=== PATIENT | female | born 1945 | race Caucasian/White ===

== ENCOUNTER → 2016-08-06 11:13 | Outpatient (CLI) | payer MEDICARE, OTHER ==
[2015-08-15 08:41] VITALS: BMI 21.5
[~2016-08-06 11:13] MED LIST: AMBIEN5 MG PO; BABY ASPIRIN81 MG PO; CALCIUM 600+D T1 TA1 PO; FIBERCON625 MG PO; LIPITOR10 MG PO; LIPITOR20 MG PO; LISINOPRIL5 MG PO; MULTI-DAY VITAM1 TAB PO; TOPROL XL25 MG PO; VITAMIN D2000 UNIT PO
== END | disposition home or self-care (01) ==
LOC: D.US 11:00
DX: N89.8 Other specified noninflammatory disorders of vagina (principal)

== ENCOUNTER 2016-09-03 09:05 | Outpatient (CLI) | payer MEDICARE, OTHER ==
[~2016-09-03] VITALS: Ht 152.4 cm; Wt 52.3 kg
[2016-09-03 10:37] VITALS: BP 124/68; Ht 152.4 cm; Wt 52.3 kg
--- NOTE | 2016-09-03 10:45 | NUR ---
1022- INFUSION STARTED TO LEFT FA IV LOT#: [id number] EXP:09/2017
== END 2016-09-03 11:00 | disposition home or self-care (01) ==
LOC: D.OPS 09:05
DX: M81.0 Age-related osteoporosis without current pathological fracture (principal)

== ENCOUNTER → 2016-09-04 15:55 | Outpatient (CLI) | payer MEDICARE, OTHER ==
[2016-09-03 10:37] VITALS: BMI 22.5
== END | disposition home or self-care (01) ==
LOC: D.MAMMO 09:30
DX: Z12.31 Encounter for screening mammogram for malignant neoplasm of breast (principal)

== ENCOUNTER → 2018-06-09 17:00 | Outpatient (CLI) | payer MEDICARE, OTHER ==
[2016-09-03 10:37] VITALS: BMI 22.5
== END | disposition home or self-care (01) ==
LOC: D.MAMMO 05-05 09:45
DX: Z12.31 Encounter for screening mammogram for malignant neoplasm of breast (principal)

== ENCOUNTER 2019-12-28 11:33 | Outpatient (CLI) | payer MEDICARE, OTHER ==
[~2019-12-28] VITALS: Ht 152.4 cm; Wt 44.5 kg
[2019-12-28 12:21] VITALS: BP 168/93; Ht 152.4 cm; Wt 44.5 kg
== END 2019-12-28 12:19 | disposition home or self-care (01) ==
LOC: D.OPS 11:33
PROVIDERS: ATTEND Family Medicine
DX: M81.0 Age-related osteoporosis without current pathological fracture (principal)

== ENCOUNTER → 2020-08-07 08:50 | Outpatient (CLI) | payer MEDICARE, OTHER ==
[2020-07-19 10:57] VITALS: BMI 21.6
[~2020-08-07 08:50] MED LIST changes: +AMIODARONE HCL200 MG PO; +ASCORBIC ACID500 MG PO; +BACTRIM DS TAB1 EAC1 PO; +CALCIUM 600 +1 EAC3 PO; +CLONIDINE HCL0.1 MG PO; +FLORASTOR250 MG PO; +FUROSEMIDE20 MG PO; +HEMOCYTE PLUS C1 CAP PO; +LOPRESSOR25 MG PO; +MUCINEX DM ER1 EAC1 PO; +VITAMIN B-121000 MCG PO; +VITAMIN B-122500 MCG PO; +[UNRECOGNIZED DRUG - OTHER] PO
[2020-08-07 10:16] LABS: BASOPHILS 0.5 % (0-2); EOSINOPHILS 2.9 % (0-7); HEMOGLOBIN 13.3 g/dL (12-16); IMMATURE GRANULOCYTES 0.2 % (0-5); LYMPHOCYTES 17.6 % (15-50); MCHC 33.3 g/dL (31.0-37.0); MCV 90.3 fL (80.0-100.0); MEAN PLATELET VOLUME 8.5 fL (7.4-10.4); MONOCYTES 9.9 % (2-11); NEUTROPHIL ABS# 5.87 10x3/uL (1.56-6.13); NEUTROPHILS 68.9 % (40-80); RBC 4.43 10x6/uL (4.00-5.40); RDW 13.6 % (11.5-14.5); WBC 8.5 10x3/uL (4.8-10.8)
[2020-08-07 10:21] LABS: ANION GAP 11.3 mmol/L (8-16); CALCIUM 9.2 mg/dL (8.5-10.1); CARBON DIOXIDE 29.6 mmol/L (21.0-32.0); CREATININE - SERUM 0.9 mg/dL (0.6-1.3); POTASSIUM - SERUM 3.9 mmol/L (3.5-5.1)
[2020-08-07 10:57] LABS: PLATELET COUNT 439 10x3/uL (130-400)
== END | disposition home or self-care (01) ==
LOC: D.ECHO 08:50
PROVIDERS: ATTEND Thoracic Surgery (Cardiothoracic Vascular Surgery)
DX: Z95.1 Presence of aortocoronary bypass graft (principal)